=== PATIENT | male | born 1985 | race Two or more races ===

== ENCOUNTER 2018-02-11 03:41 | Emergency (ER) | payer SELFPAY ==
[~2018-02-11] VITALS: Ht 188 cm; Wt 60.4 kg
[2018-02-11 03:43] VITALS: BP 133/83
[2018-02-11] MEDS ORDERED: LIDOCAINE-MPF 2% ,5ML ONE (04:08)
[2018-02-11] MEDS ORDERED: LIDOCAINE-MPF 2% ,5ML SQ ONE (04:30)
== END 2018-02-11 04:44 | disposition home or self-care (01) ==
LOC: ED 04:25
DX: L03.012 Cellulitis of left finger (principal)
CPT/HCPCS: 26011; 99284

== ENCOUNTER 2018-11-22 20:32 | Inpatient (IN) | payer OTHER ==
[~2018-11-22] VITALS: Ht 188 cm; Wt 72.0 kg
--- NOTE | 2018-11-22 20:40 | NUR ---
PT DAJUAN FROM [facility], REPORT RECEIVED FROM EMS. PT ARRIVED WITH EMS AND [facility]URD X 1. PT C/O DIFFUSE ABD PAIN STARTING TWO WEEKS AGO, THEN WENT AWAY. PAIN CAME BACK 3 DAYS AGO ALONG WITH BILATERAL FLANK PAIN, N/V AND DYSURIA. EKG TAKEN ON ARRIVAL BY EDT, ALL MONITORS IN PLACE.
[2018-11-22] MEDS ORDERED: ONDANSETRON 2MG/ML, 2ML ONE (20:49)
[2018-11-22] MEDS ORDERED: ACETAMINOPHEN 500 MG TABLET ONE (20:50)
[2018-11-22 20:54] LABS: MEAN CORPUSCULAR HEMOGLOBIN 30.4 pg (27.5-34.5); MEAN CORPUSCULAR HGB CONC 33.9 g/dL (33.2-36.2); MEAN CORPUSCULAR VOLUME 89.7 fL (81-97); MEAN PLATELET VOLUME 8.3 fL (7.4-10.4); PLATELET COUNT 155 x10^3/uL (130-400); RED BLOOD COUNT 4.86 x10^6/uL (4.38-5.82); RED CELL DISTRIBUTION WIDTH 13.5 % (9.4-14.8)
[2018-11-22] MEDS ORDERED: SODIUM CHLORIDE 0.9% 1,000ML IVBOLUS ONE ×3 (21:00→23:30)
[2018-11-22] MEDS ORDERED: ACETAMINOPHEN 500 MG TABLET PO ONE (21:00)
[2018-11-22] MEDS ORDERED: SODIUM CHLORIDE FLUSH 10ML SYR IVF ONE ×2 (21:00→22:00)
[2018-11-22] MEDS ORDERED: ONDANSETRON 2MG/ML, 2ML IVPush ONE (21:00)
--- NOTE | 2018-11-22 21:00 | NUR ---
pt medicated per emar, tolerated well. JULIA Tse notified of initial vs. NS infusing rapidly. pt instructed to provide clean catch ua, urinal at bedside. jemima aware. pt states he has no urge to void at this time.
[2018-11-22 21:02] LABS: ALANINE AMINOTRANSFERASE 22 U/L (12-78); ALBUMIN 3.5 g/dL (3.4-5.0); ANION GAP 10 mmol/L (5-15); CALCIUM 7.8 mg/dL (8.5-10.1); CHLORIDE 104 mmol/L (98-107); CREATININE 1.57 mg/dL (0.7-1.3)
[2018-11-22 21:03] LABS: MD YES
[2018-11-22 21:05] LABS: ALKALINE PHOSPHATASE 119 U/L (45-117); BILIRUBIN,TOTAL 1.2 mg/dL (0.2-1.0); TOTAL PROTEIN 6.5 g/dL (6.4-8.2)
[2018-11-22 21:11] LABS: BAND#(MANUAL) 1.18 x10^3/uL; BANDS%(MANUAL) 21 % (0-7); LYMPH#(MANUAL) 0.62 x10^3/uL (1-3.4); LYMPHS% (MANUAL) 11 % (22-44); METAMYELOCYTES# (MANUAL) 0.62 x10^3/uL (0-0); METAMYELOCYTES% (MANUAL) 11 % (0-1); MONOS#(MANUAL) 0.06 x10^3/uL (0.3-2.7); MONOS% (MANUAL) 1 % (2-9); SEG#(MANUAL) 3.14 x10^3/uL (1.8-6.8); SEGS% (MANUAL) 56 % (42-75)
[2018-11-22 21:12] LABS: <RBC MORPHOLOGY> NORMAL; PMNS WITH VACUOLES 2+
[2018-11-22 21:13] LABS: <PLATELET ESTIMATE> ADEQUATE; <PLT MORPHOLOGY> NORMAL PLT MORPH
[2018-11-22] MEDS ORDERED: MORPHINE SULFATE 4 MG/ML, 1ML ONE (21:46)
[2018-11-22] MEDS: MORPHINE SULFATE 4 MG/ML, 1ML IVPush PRN (21:50)
--- NOTE | 2018-11-22 21:51 | NUR ---
REPEAT VS REVIEWED WITH MARITZA THOMAS MD OK'D RN TO ADMIN MORPHINE. PT MEDICATED PER EMAR, TOLERATED WELL. ALL MONITORS IN PLACE. PT A&O, RESPS EVEN AND UNLABORED. IVF INFUSING RAPIDLY. AWAITING CT AND UA RESULTS.
[2018-11-22] MEDS ORDERED: CEFOTETAN PMX 2GM/50ML 50 ML IVPB ONE (22:00)
[2018-11-22 22:09] LABS: MICROSCOPIC INDICATED
[2018-11-22 22:12] LABS: CULTURE INDICATED? NO
--- NOTE | 2018-11-22 22:15 | NUR ---
REPORT TO NORMA JIMENEZ AT BEDSIDE, CEFOTETAN GTT INITIATED S/P BLOOD CX DRAWN X 2. PT A&O, RESPS EVEN AND UNLABORED. REPORTS MINIMAL PAIN RELIEF S/P MORPHINE. PT A&O, RESPS EVEN AND UNLABORED, SINUS TACH RATE 100'S WITH NO ECTOPY ON CARIDAC MONITOR.
--- NOTE | 2018-11-22 23:50 | NUR ---
PT MOVED TO TRAUMA 3 FOR CENTRAL LINE INSERTION
[2018-11-22] MEDS ORDERED: NOREPINEPHRINE 4 MG in SODIUM CHLORIDE 0.9% 246 ML IV PRN (23:56)
--- NOTE | 2018-11-23 00:01 | NUR ---
ASSUMED CARE OF PT FOR CENTRAL LINE INSERTION. SEE VS.
--- NOTE | 2018-11-23 00:10 | NUR ---
CENTRAL LINE FINISHED. PT TOLERATED WELL.
[2018-11-23] MEDS: MORPHINE SULFATE 4 MG/ML, 1ML IVPush PRN (00:11)
--- NOTE | 2018-11-23 00:16 | NUR ---
PRIMARY RN TOM TO BS, MED TO BE STARTED AFTER CXR READ BY MD. CXR DONE NOW.
--- NOTE | 2018-11-23 00:20 | NUR ---
Dr. Goodman at bedside to evaluate pt.
[2018-11-23] MEDS ORDERED: MORPHINE SULFATE 4 MG/ML, 1ML ONE (00:22)
[2018-11-23] MEDS ORDERED: SODIUM CHLORIDE 0.9% 1,000 ML IV SCH (00:27)
[2018-11-23] MEDS ORDERED: PIPERACILLIN/TAZO/PMX 3.375GM 50 ML IV ONE (00:30)
[2018-11-23] MEDS ORDERED: PIPERACILLIN/TAZO/PMX 3.375GM 50 ML IV SCH (00:30)
[2018-11-23] MEDS ORDERED: ACETAMINOPHEN 325 MG TABLET PO PRN ×2 (00:30→02:30)
[2018-11-23] MEDS ORDERED: ONDANSETRON 2MG/ML, 2ML IVPush PRN (00:30)
[2018-11-23] MEDS ORDERED: morphine SULFATE 10 MG/ML, 1ML IVPush PRN (00:30)
[2018-11-23] MEDS ORDERED: BUSP5TAB2 PO (00:31)
[2018-11-23] MEDS ORDERED: antidepressant PO (00:31)
[2018-11-23] MEDS ORDERED: OMNIPAQUE 350 MG/ML, 100ML BOTTLE ONE (00:35)
--- NOTE | 2018-11-23 00:36 | NUR ---
Per ERP, Ember, after viewing CXR, ok to use central line for levophed.
--- NOTE | 2018-11-23 00:49 | NUR ---
Labs drawn, IV ABX infusing.
[2018-11-23 01:07] LABS: ANION GAP 7 mmol/L (5-15); CALCIUM 7.2 mg/dL (8.5-10.1); CHLORIDE 108 mmol/L (98-107); CREATININE 1.82 mg/dL (0.7-1.3)
[2018-11-23 01:10] LABS: MEAN CORPUSCULAR HEMOGLOBIN 30.6 pg (27.5-34.5); MEAN CORPUSCULAR HGB CONC 34.4 g/dL (33.2-36.2); MEAN CORPUSCULAR VOLUME 88.9 fL (81-97); MEAN PLATELET VOLUME 8.7 fL (7.4-10.4); PLATELET COUNT 123 x10^3/uL (130-400); RED BLOOD COUNT 4.54 x10^6/uL (4.38-5.82); RED CELL DISTRIBUTION WIDTH 13.8 % (9.4-14.8)
[2018-11-23 01:29] LABS: MD YES
[2018-11-23 01:36] LABS: BAND#(MANUAL) 2.09 x10^3/uL; BANDS%(MANUAL) 17 % (0-7); LYMPH#(MANUAL) 0.12 x10^3/uL (1-3.4); LYMPHS% (MANUAL) 1 % (22-44); METAMYELOCYTES# (MANUAL) 0.25 x10^3/uL (0-0); METAMYELOCYTES% (MANUAL) 2 % (0-1); MONOS#(MANUAL) 0.25 x10^3/uL (0.3-2.7); MONOS% (MANUAL) 2 % (2-9); SEG#(MANUAL) 9.59 x10^3/uL (1.8-6.8); SEGS% (MANUAL) 78 % (42-75)
[2018-11-23 01:37] LABS: <PLATELET ESTIMATE> DECREASED; <PLT MORPHOLOGY> NORMAL PLT MORPH; <RBC MORPHOLOGY> NORMAL
--- NOTE | 2018-11-23 01:48 | NUR ---
Telephone SBAR report given to RN, Shruthi, from OR.
[2018-11-23] MEDS ORDERED: MIDAZOLAM 1 MG/ML, 2ML ONE (02:06)
[2018-11-23] MEDS ORDERED: BUPIVACAINE/EPI 0.5% 1:200K ONE (02:11)
[2018-11-23] MEDS ORDERED: FENTANYL PF 250 MCG/5ML ONE (02:20)
[2018-11-23] MEDS ORDERED: NEOSTIGMINE 1 MG/ML, 10ML ONE (02:25)
[2018-11-23] MEDS ORDERED: ONDANSETRON 2MG/ML, 2ML IV PRN (02:30)
[2018-11-23] MEDS ORDERED: PROMETHAZINE 12.5 MG SUPP PR PRN (02:30)
[2018-11-23] MEDS ORDERED: DIAZEPAM 5 MG/ML, 2ML IVPush PRN (02:30)
[2018-11-23] MEDS ORDERED: LABETALOL 5MG/ML, 20ML IV PRN (02:30)
[2018-11-23] MEDS ORDERED: PROMETHAZINE 25 MG/ML, 1ML IV PRN (02:30)
[2018-11-23] MEDS ORDERED: EPHEDRINE 50 MG/ML, 1ML IVPush PRN (02:30)
[2018-11-23] MEDS ORDERED: OXYcodone 5 MG/5 ML ORAL.SOL UDC PO PRN (02:30)
[2018-11-23] MEDS ORDERED: hydrALAzine 20 MG/ML, 1ML IV PRN (02:30)
[2018-11-23] MEDS ORDERED: ONDANSETRON ODT 8 MG PO PRN (02:30)
[2018-11-23] MEDS ORDERED: MORPHINE SULFATE 4 MG/ML, 1ML IVPush PRN (02:30)
[2018-11-23] MEDS ORDERED: HYDROmorphone 2 MG/ML, 1ML IVPush PRN (02:30)
[2018-11-23] MEDS ORDERED: HALOPERIDOL 5 MG/ML IV PRN (02:30)
[2018-11-23] MEDS ORDERED: ALBUTEROL SULFATE 2.5 MG/3 ML NPPB PRN (02:30)
[2018-11-23] MEDS ORDERED: FENTANYL PF 100 MCG/2ML IV PRN (02:30)
[2018-11-23] MEDS ORDERED: MEPERIDINE/PF 25MG/0.5ML IVPush PRN (02:30)
[2018-11-23] MEDS ORDERED: MIDAZOLAM 1 MG/ML, 2ML IV PRN (02:30)
[2018-11-23] MEDS ORDERED: NS + 40MEQ KCL 1,000 ML IV SCH (03:00)
[2018-11-23] MEDS ORDERED: DEXAMETHASONE 4 MG/ML, 1ML ONE (03:09)
[2018-11-23] MEDS ORDERED: SUCCINYLCHOLINE 20 MG/ML, 10ML ONE (03:09)
[2018-11-23] MEDS ORDERED: PROPOFOL 10 MG/ML, 20ML ONE (03:09)
[2018-11-23] MEDS ORDERED: ONDANSETRON 2MG/ML, 2ML ONE (03:09)
[2018-11-23] MEDS ORDERED: VASOPRESSIN 20 UNIT/ML, 1ML ONE (03:09)
[2018-11-23] MEDS ORDERED: ROCURONIUM 10MG/ML,5ML ONE (03:09)
[2018-11-23] MEDS ORDERED: BUPIVACAINE/EPI 0.5% 1:200K INFIL ONE (03:23)
[2018-11-23 04:33] VITALS: BP 96/69
[2018-11-23] MEDS ORDERED: LORazepam 1MG TABLET PO PRN (05:30)
[2018-11-23] MEDS ORDERED: ACETAMINOPHEN 650 MG SUPP PR PRN (05:30)
[2018-11-23] MEDS ORDERED: POTASSIUM CHLORIDE 20 MEQ in D5%-0.45% NACL 1,000 ML IV SCH (05:30)
[2018-11-23] MEDS ORDERED: METRONIDAZOLE PMX 500MG/100ML 100 ML IVPB SCH (05:30)
[2018-11-23] MEDS: ENOXAPARIN 40 MG/0.4 ML SQ SCH ×2 (05:30→06:04)
[2018-11-23] MEDS ORDERED: LORazepam 2 MG/ML, 1ML IV PRN (05:30)
[2018-11-23] MEDS ORDERED: NOREPINEPHRINE 4 MG in SODIUM CHLORIDE 0.9% 246 ML IV PRN (06:30)
[2018-11-23] MEDS: morphine SULFATE 10 MG/ML, 1ML IV PRN ×4 (07:29→21:16)
[2018-11-23] MEDS: SODIUM CHLORIDE 0.45% 1,000 ML IV SCH ×2 (07:32→17:42)
[2018-11-23] MEDS: PIPERACILLIN/TAZO/PMX 3.375GM 50 ML IV SCH ×3 (07:34→17:41)
[2018-11-23] MEDS ORDERED: FAMOTIDINE 20 MG/2 ML IVPush SCH (09:00)
[2018-11-23] MEDS ORDERED: CEFOTETAN PMX 1GM/50ML 50 ML IVPB SCH (10:00)
[2018-11-23] MEDS: ACETAMINOPHEN 325 MG TABLET PO PRN (16:55)
[2018-11-23 18:45] VITALS: BP 98/60
[2018-11-24] MEDS: PIPERACILLIN/TAZO/PMX 3.375GM 50 ML IV SCH ×3 (00:34→12:41)
[2018-11-24] MEDS: morphine SULFATE 10 MG/ML, 1ML IV PRN ×7 (00:56→19:53)
[2018-11-24] MEDS: SODIUM CHLORIDE 0.45% 1,000 ML IV SCH ×2 (03:17→20:30)
[2018-11-24 03:55] VITALS: BP 95/65
[2018-11-24 05:31] LABS: MEAN CORPUSCULAR HEMOGLOBIN 30.7 pg (27.5-34.5); MEAN CORPUSCULAR HGB CONC 34.1 g/dL (33.2-36.2); MEAN CORPUSCULAR VOLUME 90.2 fL (81-97); MEAN PLATELET VOLUME 9.6 fL (7.4-10.4); PLATELET COUNT 103 x10^3/uL (130-400); RED BLOOD COUNT 4.38 x10^6/uL (4.38-5.82)
[2018-11-24 05:44] LABS: CHLORIDE 107 mmol/L (98-107)
[2018-11-24 05:56] LABS: ALANINE AMINOTRANSFERASE 23 U/L (12-78); ALBUMIN 2.8 g/dL (3.4-5.0); ALKALINE PHOSPHATASE 70 U/L (45-117); ANION GAP 5 mmol/L (5-15); BILIRUBIN,TOTAL 0.8 mg/dL (0.2-1.0); CALCIUM 7.7 mg/dL (8.5-10.1); CREATININE 0.96 mg/dL (0.7-1.3); TOTAL PROTEIN 5.8 g/dL (6.4-8.2)
[2018-11-24 06:14] LABS: MD YES
[2018-11-24 06:15] LABS: BAND#(MANUAL) 2.46 x10^3/uL; BANDS%(MANUAL) 23 % (0-7); LYMPH#(MANUAL) 0.64 x10^3/uL (1-3.4); LYMPHS% (MANUAL) 6 % (22-44); MONOS#(MANUAL) 0.75 x10^3/uL (0.3-2.7); MONOS% (MANUAL) 7 % (2-9); SEG#(MANUAL) 6.85 x10^3/uL (1.8-6.8); SEGS% (MANUAL) 64 % (42-75)
[2018-11-24 06:16] LABS: <PLATELET ESTIMATE> DECREASED; <PLT MORPHOLOGY> NORMAL PLT MORPH; <RBC MORPHOLOGY> NORMAL
[2018-11-24] MEDS: ENOXAPARIN 40 MG/0.4 ML SQ SCH (06:34)
[2018-11-24 06:55] VITALS: BP 98/61
[2018-11-24] MEDS ORDERED: POTASSIUM CHLORIDE 40 MEQ in SODIUM CHLORIDE 0.9% 500 ML IV ONE (09:00)
[2018-11-24] MEDS: ONDANSETRON 2MG/ML, 2ML IV PRN (12:41)
[2018-11-24] MEDS ORDERED: METOCLOPRAMIDE 5 MG/ML, 2ML ONE (14:14)
[2018-11-24] MEDS ORDERED: METOCLOPRAMIDE 5 MG/ML, 2ML IVPush ONE (14:30)
[2018-11-24 14:35] VITALS: BP 100/72
[2018-11-24] MEDS: PIPERACILLIN/TAZO/PMX 4.5GM 100 ML IV SCH (17:36)
[2018-11-24 19:05] VITALS: BP 100/67
[2018-11-25 00:10] VITALS: BP 120/76
[2018-11-25] MEDS: morphine SULFATE 10 MG/ML, 1ML IV PRN ×2 (00:10→05:49)
[2018-11-25] MEDS: ONDANSETRON 2MG/ML, 2ML IV PRN ×2 (00:16→21:20)
[2018-11-25] MEDS: PIPERACILLIN/TAZO/PMX 4.5GM 100 ML IV SCH ×5 (05:39→23:45)
[2018-11-25] MEDS: ENOXAPARIN 40 MG/0.4 ML SQ SCH (05:39)
[2018-11-25 05:47] LABS: ANION GAP 5 mmol/L (5-15); CALCIUM 7.7 mg/dL (8.5-10.1); CHLORIDE 103 mmol/L (98-107)
[2018-11-25 05:54] LABS: MEAN CORPUSCULAR HEMOGLOBIN 30.7 pg (27.5-34.5); MEAN CORPUSCULAR HGB CONC 34.3 g/dL (33.2-36.2); MEAN CORPUSCULAR VOLUME 89.5 fL (81-97); MEAN PLATELET VOLUME 9.9 fL (7.4-10.4); PLATELET COUNT 117 x10^3/uL (130-400); RED BLOOD COUNT 4.68 x10^6/uL (4.38-5.82); RED CELL DISTRIBUTION WIDTH 13.9 % (9.4-14.8)
[2018-11-25 06:16] LABS: MD YES
[2018-11-25 06:20] LABS: BAND#(MANUAL) 1.58 x10^3/uL; BANDS%(MANUAL) 12 % (0-7); LYMPHS% (MANUAL) 3 % (22-44); MONOS% (MANUAL) 3 % (2-9); SEG#(MANUAL) 10.82 x10^3/uL (1.8-6.8); SEGS% (MANUAL) 82 % (42-75)
[2018-11-25 06:21] LABS: <PLATELET ESTIMATE> DECREASED; <PLT MORPHOLOGY> NORMAL PLT MORPH; <RBC MORPHOLOGY> NORMAL
[2018-11-25 07:38] VITALS: BP 113/73
[2018-11-25] MEDS ORDERED: POTASSIUM CHLORIDE 40 MEQ in SODIUM CHLORIDE 0.9% 500 ML IV ONE (08:00)
[2018-11-25] MEDS: SODIUM CHLORIDE 0.45% 1,000 ML IV SCH ×2 (08:24→20:00)
[2018-11-25] MEDS ORDERED: chlorPROMAZINE 25 MG/ML, 2ML IM ONE (08:30)
[2018-11-25] MEDS ORDERED: OMNIPAQUE 350 MG/ML, 100ML BOTTLE ONE (12:59)
[2018-11-25 14:48] VITALS: BP 109/71
[2018-11-25 19:11] VITALS: BP 105/65
[2018-11-25] MEDS: HYDROmorphone 2 MG/ML, 1ML IV PRN (21:20)
[2018-11-26] MEDS: HYDROmorphone 2 MG/ML, 1ML IV PRN ×2 (00:19→04:52)
[2018-11-26 01:11] VITALS: BP 106/62
[2018-11-26] MEDS: ENOXAPARIN 40 MG/0.4 ML SQ SCH (05:35)
[2018-11-26] MEDS: PIPERACILLIN/TAZO/PMX 4.5GM 100 ML IV SCH ×3 (05:35→21:08)
[2018-11-26] MEDS: SODIUM CHLORIDE 0.45% 1,000 ML IV SCH (05:35)
[2018-11-26 05:38] LABS: MEAN CORPUSCULAR HGB CONC 33.5 g/dL (33.2-36.2); MEAN CORPUSCULAR VOLUME 89.5 fL (81-97); MEAN PLATELET VOLUME 9.4 fL (7.4-10.4); PLATELET COUNT 129 x10^3/uL (130-400); RED BLOOD COUNT 4.35 x10^6/uL (4.38-5.82); RED CELL DISTRIBUTION WIDTH 13.6 % (9.4-14.8)
[2018-11-26 05:48] LABS: CHLORIDE 106 mmol/L (98-107)
[2018-11-26 05:59] LABS: ALANINE AMINOTRANSFERASE 22 U/L (12-78); ALBUMIN 2.5 g/dL (3.4-5.0); ALKALINE PHOSPHATASE 49 U/L (45-117); ANION GAP 5 mmol/L (5-15); BILIRUBIN,TOTAL 0.7 mg/dL (0.2-1.0); CALCIUM 7.4 mg/dL (8.5-10.1); CREATININE 0.87 mg/dL (0.7-1.3); TOTAL PROTEIN 5.6 g/dL (6.4-8.2)
[2018-11-26 07:24] LABS: BASOPHILS % (AUTO) 0 % (0-1); EOSINOPHILS # (AUTO) 0.03 x10^3/uL (0-0.4); EOSINOPHILS % (AUTO) 0 % (1-7); LYMPHOCYTES # (AUTO) 0.64 x10^3/uL (1-3.4); LYMPHOCYTES % (AUTO) 6 % (22-44); MD SCAN; MONOCYTES # (AUTO) 0.95 x10^3/uL (0.2-0.8); MONOCYTES % (AUTO) 8 % (2-9); NEUTROPHILS # (AUTO) 9.69 x10^3/uL (1.8-6.8); NEUTROPHILS % (AUTO) 86 % (42-75)
[2018-11-26 07:30] VITALS: BP 117/77
[2018-11-26] MEDS ORDERED: POTASSIUM PHOSPHATE 44 MEQ in SODIUM CHLORIDE 0.9% 500 ML IV ONE (09:30)
[2018-11-26] MEDS: OXYcodone IR 5MG TABLET PO PRN ×3 (10:17→21:08)
[2018-11-26 13:30] VITALS: BP 112/72
[2018-11-26] MEDS: ACETAMINOPHEN 325 MG TABLET PO PRN (15:13)
[2018-11-26 19:26] VITALS: BP 114/75
[2018-11-27 01:22] VITALS: BP 120/76
[2018-11-27] MEDS: PIPERACILLIN/TAZO/PMX 4.5GM 100 ML IV SCH ×4 (01:33→20:31)
[2018-11-27] MEDS: OXYcodone IR 5MG TABLET PO PRN ×5 (01:34→23:04)
[2018-11-27] MEDS: ENOXAPARIN 40 MG/0.4 ML SQ SCH (06:10)
[2018-11-27 06:20] LABS: CHLORIDE 106 mmol/L (98-107)
[2018-11-27 06:48] LABS: ANION GAP 7 mmol/L (5-15); CALCIUM 7.7 mg/dL (8.5-10.1); CREATININE 0.78 mg/dL (0.7-1.3)
[2018-11-27] MEDS: NEUTRA PHOS K 250 MG TABLET PO SCH ×3 (08:45→20:30)
[2018-11-27] MEDS: POTASSIUM CHLORIDE 20 MEQ TAB.ER.PRT PO SCH ×2 (08:45→13:22)
[2018-11-27 09:03] VITALS: BP 110/68
[2018-11-27 13:38] VITALS: BP 113/73
[2018-11-27 19:09] VITALS: BP 126/91
[2018-11-27 19:18] VITALS: BP 110/74
[2018-11-28] MEDS: PIPERACILLIN/TAZO/PMX 4.5GM 100 ML IV SCH ×3 (02:04→14:00)
[2018-11-28 02:50] VITALS: BP 112/70
[2018-11-28] MEDS: OXYcodone IR 5MG TABLET PO PRN ×3 (03:46→11:55)
[2018-11-28 05:29] LABS: CHLORIDE 106 mmol/L (98-107)
[2018-11-28] MEDS: ENOXAPARIN 40 MG/0.4 ML SQ SCH (05:36)
[2018-11-28 05:50] LABS: ANION GAP 8 mmol/L (5-15); CALCIUM 7.8 mg/dL (8.5-10.1); CREATININE 0.74 mg/dL (0.7-1.3)
[2018-11-28] MEDS: NEUTRA PHOS K 250 MG TABLET PO SCH (08:04)
[2018-11-28] MEDS ORDERED: POTASSIUM CHLORIDE 20 MEQ TAB.ER.PRT PO ONE (09:00)
[2018-11-28 09:26] VITALS: BP 111/70
[2018-11-28] MEDS ORDERED: SCOPOLAMINE PATCH, 1.5MG PATCH.TD72 TD ONE (09:30)
[2018-11-28] MEDS ORDERED: POTA20TA89 PO (11:44)
[2018-11-28] MEDS ORDERED: PHOS250T3 PO (11:44)
[2018-11-28] MEDS ORDERED: AMOX1TAB64 PO (12:58)
[2018-11-28 13:00] VITALS: BP 114/65
== END 2018-11-28 14:45 | disposition home or self-care (01) | DRG 853 ==
LOC: ED 20:58 → EDIP 23:56 → CCU 11-23 04:25 → 4NOR 11-23 18:42
PROVIDERS: ADMIT Family Medicine; ATTEND Family Medicine
PROC: 02HV33Z Insertion of Infusion Device into Superior Vena Cava, Percutaneous Approach (ICD-10-PCS; 2018-11-23)
PROC: B548ZZA Ultrasonography of Superior Vena Cava, Guidance (ICD-10-PCS; 2018-11-23)
PROC: 0DTJ4ZZ Resection of Appendix, Percutaneous Endoscopic Approach (ICD-10-PCS; principal; 2018-11-23 06:00)
DX: A41.51 Sepsis due to Escherichia coli [E. coli] (principal); R65.21 Severe sepsis with septic shock; N17.0 Acute kidney failure with tubular necrosis; K35.20 Acute appendicitis with generalized peritonitis, without abscess; I96 Gangrene, not elsewhere classified; K56.7 Ileus, unspecified; E86.0 Dehydration; J44.9 Chronic obstructive pulmonary disease, unspecified; F32.9 Major depressive disorder, single episode, unspecified; E87.6 Hypokalemia; E83.39 Other disorders of phosphorus metabolism; N20.0 Calculus of kidney; N28.1 Cyst of kidney, acquired; E86.1 Hypovolemia; Z87.891 Personal history of nicotine dependence; Z79.899 Other long term (current) drug therapy
CPT/HCPCS: 36415; 96361; 99291; 99292; J3490; 71045; 74177; 80048; 80053; 81001; 83605; 83690; 83735; 84100; 85025; 87040; 87077; 87081; 87186; 88304; 93005; 96365; 96366; 96372; G0378; J1100; J1170; J1650; J2250; J2405; J2543; J2704; J2710; J3010; J3480; Q9967; J0330; J2270; J2765; J3230; J7030; J7040; J7050

== ENCOUNTER 2018-11-28 21:48 | Inpatient (IN) | payer OTHER ==
[~2018-11-28] VITALS: Ht 177.8 cm; Wt 64.0 kg
[~2018-11-28 21:48] MED LIST: AMOX1TAB64 PO; BUSP5TAB2 PO; PHOS250T3 PO; POTA20TA89 PO; antidepressant PO
--- NOTE | 2018-11-28 21:59 | NUR ---
pt bib remsa tonight for fever and warm, tight abdomen 4 days post appy. Pt arrives to [facility] and vss. pt attached to vs machines. pt temperature rechecked, and improved from initial temperature at detention. T- 99.0 at [facility] ED. FSBS for EMS 96. Pt received 200 fentanyl and 600 ml bolus of NS en route. Dr. Hope at bs for pt history and assessment. Officer at bs with pt. pt educated on er process and poc and verbalizes understanding. Call light is within reach.
[2018-11-28] MEDS ORDERED: SODIUM CHLORIDE FLUSH 10ML SYR IVF ONE (22:00)
[2018-11-28] MEDS ORDERED: ONDANSETRON 2MG/ML, 2ML IVPush ONE (22:00)
[2018-11-28] MEDS ORDERED: MORPHINE SULFATE 4 MG/ML, 1ML ONE ×2 (22:05→22:56)
[2018-11-28] MEDS ORDERED: ONDANSETRON 2MG/ML, 2ML ONE (22:05)
[2018-11-28] MEDS: MORPHINE SULFATE 4 MG/ML, 1ML IVPush PRN ×2 (22:14→23:03)
--- NOTE | 2018-11-28 22:14 | NUR ---
pt medicated per mar for pain and nausea.
[2018-11-28 22:24] LABS: BASOPHILS # (AUTO) 0.04 x10^3/uL (0-0.1); BASOPHILS % (AUTO) 0 % (0-1); EOSINOPHILS # (AUTO) 0.03 x10^3/uL (0-0.4); EOSINOPHILS % (AUTO) 0 % (1-7); LYMPHOCYTES # (AUTO) 1.04 x10^3/uL (1-3.4); LYMPHOCYTES % (AUTO) 9 % (22-44); MD NO; MEAN CORPUSCULAR HEMOGLOBIN 29.6 pg (27.5-34.5); MEAN CORPUSCULAR HGB CONC 33.7 g/dL (33.2-36.2); MEAN CORPUSCULAR VOLUME 87.6 fL (81-97); MEAN PLATELET VOLUME 8.2 fL (7.4-10.4); MONOCYTES # (AUTO) 1.42 x10^3/uL (0.2-0.8); MONOCYTES % (AUTO) 12 % (2-9); NEUTROPHILS # (AUTO) 9.56 x10^3/uL (1.8-6.8); NEUTROPHILS % (AUTO) 79 % (42-75); PLATELET COUNT 271 x10^3/uL (130-400); RED BLOOD COUNT 4.55 x10^6/uL (4.38-5.82); RED CELL DISTRIBUTION WIDTH 13.7 % (9.4-14.8)
[2018-11-28] MEDS ORDERED: SODIUM CHLORIDE 0.9% 1,000ML IVBOLUS ONE (22:30)
[2018-11-28 22:32] LABS: ALANINE AMINOTRANSFERASE 31 U/L (12-78); ALBUMIN 2.4 g/dL (3.4-5.0); ANION GAP 10 mmol/L (5-15); CALCIUM 7.3 mg/dL (8.5-10.1); CHLORIDE 106 mmol/L (98-107); CREATININE 0.75 mg/dL (0.7-1.3)
[2018-11-28 22:35] LABS: ALKALINE PHOSPHATASE 45 U/L (45-117); BILIRUBIN,TOTAL 0.7 mg/dL (0.2-1.0); TOTAL PROTEIN 5.8 g/dL (6.4-8.2)
[2018-11-28 23:11] LABS: MICROSCOPIC NOT IND
[2018-11-28 23:13] LABS: CULTURE INDICATED? NO
[2018-11-28] MEDS ORDERED: PIPERACILLIN/TAZO/PMX 3.375GM 50 ML IV ONE (23:30)
--- NOTE | 2018-11-28 23:34 | NUR ---
pt resting comfortably in this gurney at this time. guard at bs. pt educated on admit plan and verbalizes understanding.
--- NOTE | 2018-11-29 00:07 | NUR ---
PT TRANSFERRED TO FLOOR WITH TRANSPORT STAFF. REPORT OF PT TO NORMA CATHERINE. ALL QUESTIONS ANSWERED.
[2018-11-29 00:13] VITALS: BP 118/70
[2018-11-29] MEDS ORDERED: LABETALOL 5 MG/ML SYRINGE IVPush PRN (00:30)
[2018-11-29] MEDS ORDERED: KETOROLAC 30 MG/1 ML IV PRN (00:30)
[2018-11-29] MEDS ORDERED: ACETAMINOPHEN 325 MG TABLET PO PRN (00:30)
[2018-11-29] MEDS ORDERED: ONDANSETRON 2MG/ML, 2ML IVPush PRN (00:30)
[2018-11-29] MEDS ORDERED: ZOSYN PER PHARMACY MC PRN (00:30)
[2018-11-29] MEDS: ENOXAPARIN 40 MG/0.4 ML SQ SCH (01:02)
[2018-11-29] MEDS: morphine SULFATE 10 MG/ML, 1ML IVPush PRN ×4 (01:02→20:10)
[2018-11-29] MEDS ORDERED: OMNIPAQUE 350 MG/ML, 100ML BOTTLE ONE (01:20)
[2018-11-29] MEDS: D5%-0.45NACL+KCL 20MEQ 1,000 ML IV SCH ×2 (01:24→10:24)
[2018-11-29] MEDS: PIPERACILLIN/TAZO/PMX 3.375GM 50 ML IV SCH ×4 (06:13→23:21)
[2018-11-29 08:10] VITALS: BP 111/65
[2018-11-29] MEDS ORDERED: SODIUM CHLORIDE 0.9%, 500ML IV ONE (09:30)
[2018-11-29] MEDS: METOCLOPRAMIDE 5 MG/ML, 2ML IV SCH ×3 (10:25→21:54)
[2018-11-29 12:45] VITALS: BP 102/68
[2018-11-29] MEDS ORDERED: POTASSIUM PHOSPHATE 44 MEQ in SODIUM CHLORIDE 0.9% 500 ML IV ONE (15:00)
[2018-11-29 20:12] VITALS: BP 107/67
[2018-11-30] MEDS: ENOXAPARIN 40 MG/0.4 ML SQ SCH ×2 (00:30→09:48)
[2018-11-30 00:45] VITALS: BP 99/57
[2018-11-30] MEDS: morphine SULFATE 10 MG/ML, 1ML IVPush PRN ×5 (00:53→20:52)
[2018-11-30] MEDS: METOCLOPRAMIDE 5 MG/ML, 2ML IV SCH ×4 (03:47→21:27)
[2018-11-30 05:10] LABS: BASOPHILS # (AUTO) 0.01 x10^3/uL (0-0.1); BASOPHILS % (AUTO) 0 % (0-1); EOSINOPHILS # (AUTO) 0.06 x10^3/uL (0-0.4); EOSINOPHILS % (AUTO) 1 % (1-7); LYMPHOCYTES # (AUTO) 1.07 x10^3/uL (1-3.4); LYMPHOCYTES % (AUTO) 11 % (22-44); MD NO; MEAN CORPUSCULAR HEMOGLOBIN 29.5 pg (27.5-34.5); MEAN CORPUSCULAR HGB CONC 33.1 g/dL (33.2-36.2); MEAN CORPUSCULAR VOLUME 89.2 fL (81-97); MONOCYTES # (AUTO) 1.07 x10^3/uL (0.2-0.8); MONOCYTES % (AUTO) 11 % (2-9); NEUTROPHILS # (AUTO) 7.22 x10^3/uL (1.8-6.8); NEUTROPHILS % (AUTO) 77 % (42-75); PLATELET COUNT 360 x10^3/uL (130-400); RED BLOOD COUNT 4.32 x10^6/uL (4.38-5.82); RED CELL DISTRIBUTION WIDTH 14.1 % (9.4-14.8)
[2018-11-30 05:24] LABS: CHLORIDE 109 mmol/L (98-107)
[2018-11-30] MEDS: D5%-0.45NACL+KCL 20MEQ 1,000 ML IV SCH ×2 (05:25→18:31)
[2018-11-30] MEDS: PIPERACILLIN/TAZO/PMX 3.375GM 50 ML IV SCH ×3 (05:25→18:31)
[2018-11-30 05:40] LABS: ALANINE AMINOTRANSFERASE 29 U/L (12-78); ALBUMIN 2.3 g/dL (3.4-5.0); ALKALINE PHOSPHATASE 46 U/L (45-117); ANION GAP 6 mmol/L (5-15); BILIRUBIN,TOTAL 0.6 mg/dL (0.2-1.0); CALCIUM 7.5 mg/dL (8.5-10.1); CREATININE 0.72 mg/dL (0.7-1.3); TOTAL PROTEIN 5.9 g/dL (6.4-8.2)
[2018-11-30 08:15] VITALS: BP 101/59
[2018-11-30 13:05] VITALS: BP 98/63
[2018-11-30] MEDS: KETOROLAC 30 MG/1 ML IV PRN (14:29)
[2018-11-30 19:32] VITALS: BP 107/72
[2018-12-01] MEDS: PIPERACILLIN/TAZO/PMX 3.375GM 50 ML IV SCH ×5 (00:06→23:43)
[2018-12-01] MEDS: morphine SULFATE 10 MG/ML, 1ML IVPush PRN ×7 (01:06→22:47)
[2018-12-01 01:09] VITALS: BP 106/61
[2018-12-01] MEDS: D5%-0.45NACL+KCL 20MEQ 1,000 ML IV SCH ×3 (02:23→21:24)
[2018-12-01] MEDS: METOCLOPRAMIDE 5 MG/ML, 2ML IV SCH (04:15)
[2018-12-01] MEDS: KETOROLAC 30 MG/1 ML IV PRN ×2 (04:20→23:43)
[2018-12-01 05:47] LABS: BASOPHILS # (AUTO) 0.02 x10^3/uL (0-0.1); BASOPHILS % (AUTO) 0 % (0-1); EOSINOPHILS # (AUTO) 0.07 x10^3/uL (0-0.4); EOSINOPHILS % (AUTO) 1 % (1-7); LYMPHOCYTES % (AUTO) 13 % (22-44); MD NO; MEAN CORPUSCULAR HEMOGLOBIN 29.3 pg (27.5-34.5); MEAN CORPUSCULAR HGB CONC 32.9 g/dL (33.2-36.2); MEAN PLATELET VOLUME 7.7 fL (7.4-10.4); MONOCYTES # (AUTO) 0.98 x10^3/uL (0.2-0.8); MONOCYTES % (AUTO) 12 % (2-9); NEUTROPHILS # (AUTO) 6.32 x10^3/uL (1.8-6.8); NEUTROPHILS % (AUTO) 74 % (42-75); PLATELET COUNT 414 x10^3/uL (130-400); RED BLOOD COUNT 4.26 x10^6/uL (4.38-5.82); RED CELL DISTRIBUTION WIDTH 14.2 % (9.4-14.8)
[2018-12-01 05:57] LABS: ANION GAP 4 mmol/L (5-15); CALCIUM 7.7 mg/dL (8.5-10.1); CHLORIDE 110 mmol/L (98-107); CREATININE 0.78 mg/dL (0.7-1.3)
[2018-12-01] MEDS: ENOXAPARIN 40 MG/0.4 ML SQ SCH (09:54)
[2018-12-01 11:20] VITALS: BP 105/68
[2018-12-01 14:33] VITALS: BP 114/77
[2018-12-01 18:49] VITALS: BP 107/66
[2018-12-02 00:43] VITALS: BP 101/60
[2018-12-02] MEDS: morphine SULFATE 10 MG/ML, 1ML IVPush PRN ×7 (01:56→23:34)
[2018-12-02 04:15] LABS: BASOPHILS # (AUTO) 0.02 x10^3/uL (0-0.1); BASOPHILS % (AUTO) 0 % (0-1); EOSINOPHILS # (AUTO) 0.12 x10^3/uL (0-0.4); EOSINOPHILS % (AUTO) 2 % (1-7); LYMPHOCYTES # (AUTO) 1.49 x10^3/uL (1-3.4); LYMPHOCYTES % (AUTO) 20 % (22-44); MD NO; MEAN CORPUSCULAR HEMOGLOBIN 29.9 pg (27.5-34.5); MEAN CORPUSCULAR HGB CONC 33.9 g/dL (33.2-36.2); MEAN CORPUSCULAR VOLUME 88.2 fL (81-97); MEAN PLATELET VOLUME 7.6 fL (7.4-10.4); MONOCYTES # (AUTO) 1.03 x10^3/uL (0.2-0.8); MONOCYTES % (AUTO) 14 % (2-9); NEUTROPHILS # (AUTO) 4.77 x10^3/uL (1.8-6.8); NEUTROPHILS % (AUTO) 64 % (42-75); PLATELET COUNT 476 x10^3/uL (130-400); RED BLOOD COUNT 4.14 x10^6/uL (4.38-5.82); RED CELL DISTRIBUTION WIDTH 14.2 % (9.4-14.8)
[2018-12-02 04:23] LABS: CHLORIDE 103 mmol/L (98-107)
[2018-12-02 04:30] LABS: ALANINE AMINOTRANSFERASE 35 U/L (12-78); ALBUMIN 2.4 g/dL (3.4-5.0); ALKALINE PHOSPHATASE 42 U/L (45-117); ANION GAP 4 mmol/L (5-15); BILIRUBIN,TOTAL 0.9 mg/dL (0.2-1.0); CALCIUM 7.8 mg/dL (8.5-10.1); CREATININE 0.68 mg/dL (0.7-1.3); TOTAL PROTEIN 6.1 g/dL (6.4-8.2)
[2018-12-02] MEDS: D5%-0.45NACL+KCL 20MEQ 1,000 ML IV SCH ×2 (05:15→14:53)
[2018-12-02] MEDS: PIPERACILLIN/TAZO/PMX 3.375GM 50 ML IV SCH ×2 (05:15→11:54)
[2018-12-02 08:08] VITALS: BP 108/66
[2018-12-02] MEDS: KETOROLAC 30 MG/1 ML IV PRN ×2 (08:28→14:53)
[2018-12-02] MEDS: ENOXAPARIN 40 MG/0.4 ML SQ SCH ×2 (08:30→08:31)
[2018-12-02 12:22] VITALS: BP 106/61
[2018-12-02] MEDS: CEFTRIAXONE PMX 2GM/50ML 50 ML IV SCH (16:42)
[2018-12-02] MEDS: METRONIDAZOLE PMX 500MG/100ML 100 ML IV SCH (17:13)
[2018-12-02 19:17] VITALS: BP 113/75
[2018-12-03 00:22] VITALS: BP 110/67
[2018-12-03] MEDS: D5%-0.45NACL+KCL 20MEQ 1,000 ML IV SCH ×3 (01:45→22:39)
[2018-12-03] MEDS: METRONIDAZOLE PMX 500MG/100ML 100 ML IV SCH ×3 (01:45→18:10)
[2018-12-03 07:26] VITALS: BP 102/64
[2018-12-03] MEDS: morphine SULFATE 10 MG/ML, 1ML IVPush PRN (07:29)
[2018-12-03 08:00] LABS: BASOPHILS # (AUTO) 0.02 x10^3/uL (0-0.1); BASOPHILS % (AUTO) 0 % (0-1); EOSINOPHILS # (AUTO) 0.09 x10^3/uL (0-0.4); EOSINOPHILS % (AUTO) 1 % (1-7); LYMPHOCYTES # (AUTO) 1.13 x10^3/uL (1-3.4); LYMPHOCYTES % (AUTO) 17 % (22-44); MD NO; MEAN CORPUSCULAR HEMOGLOBIN 29.4 pg (27.5-34.5); MEAN CORPUSCULAR VOLUME 89.1 fL (81-97); MEAN PLATELET VOLUME 7.4 fL (7.4-10.4); MONOCYTES # (AUTO) 0.91 x10^3/uL (0.2-0.8); MONOCYTES % (AUTO) 13 % (2-9); NEUTROPHILS # (AUTO) 4.67 x10^3/uL (1.8-6.8); NEUTROPHILS % (AUTO) 68 % (42-75); PLATELET COUNT 661 x10^3/uL (130-400); RED BLOOD COUNT 4.62 x10^6/uL (4.38-5.82); RED CELL DISTRIBUTION WIDTH 14.3 % (9.4-14.8)
[2018-12-03 08:10] LABS: ALBUMIN 2.6 g/dL (3.4-5.0); ANION GAP 5 mmol/L (5-15); CHLORIDE 105 mmol/L (98-107)
[2018-12-03 08:14] LABS: ALANINE AMINOTRANSFERASE 35 U/L (12-78); ALKALINE PHOSPHATASE 42 U/L (45-117); BILIRUBIN,TOTAL 0.7 mg/dL (0.2-1.0); CREATININE 0.71 mg/dL (0.7-1.3); TOTAL PROTEIN 6.5 g/dL (6.4-8.2)
[2018-12-03] MEDS: ENOXAPARIN 40 MG/0.4 ML SQ SCH (09:31)
[2018-12-03] MEDS ORDERED: morphine SULFATE 10 MG/ML, 1ML IVPush PRN (14:00)
[2018-12-03 14:30] VITALS: BP 101/65
[2018-12-03] MEDS: CEFTRIAXONE PMX 2GM/50ML 50 ML IV SCH (16:46)
[2018-12-03 20:22] VITALS: BP 98/60
[2018-12-04 01:16] VITALS: BP 101/58
[2018-12-04] MEDS: METRONIDAZOLE PMX 500MG/100ML 100 ML IV SCH ×2 (01:33→11:19)
[2018-12-04 06:43] VITALS: BP 100/60
[2018-12-04] MEDS: D5%-0.45NACL+KCL 20MEQ 1,000 ML IV SCH (09:40)
[2018-12-04] MEDS: ENOXAPARIN 40 MG/0.4 ML SQ SCH (09:40)
[2018-12-04 10:34] LABS: ALBUMIN 2.7 g/dL (3.4-5.0); ANION GAP 6 mmol/L (5-15); CALCIUM 8.1 mg/dL (8.5-10.1); CHLORIDE 103 mmol/L (98-107); CREATININE 0.74 mg/dL (0.7-1.3)
[2018-12-04 13:40] VITALS: BP 94/56
[2018-12-04] MEDS ORDERED: CEFD300C37 PO (15:15)
[2018-12-04] MEDS ORDERED: ACET325T14 PO (15:15)
[2018-12-04] MEDS ORDERED: METR500T PO (15:15)
== END 2018-12-04 17:45 | disposition home or self-care (01) | DRG 871 ==
LOC: MERGE 21:48 → ED 22:27 → EDIP 23:16 → 4NOR 23:53
PROVIDERS: ADMIT Family Medicine; ATTEND Family Medicine
PROC: 0D9670Z Drainage of Stomach with Drainage Device, Via Natural or Artificial Opening (ICD-10-PCS; principal; 2018-11-29)
DX: A41.9 Sepsis, unspecified organism (principal); E43 Unspecified severe protein-calorie malnutrition; E87.1 Hypo-osmolality and hyponatremia; K56.600 Partial intestinal obstruction, unspecified as to cause; D64.9 Anemia, unspecified; E83.39 Other disorders of phosphorus metabolism; E86.0 Dehydration; E87.6 Hypokalemia; Z68.20 Body mass index [BMI] 20.0-20.9, adult; Z90.49 Acquired absence of other specified parts of digestive tract
CPT/HCPCS: 36415; 74018; 74021; 74177; 80048; 80053; 81003; 82040; 83605; 83690; 83735; 84100; 84132; 85025; 87040; 96361; 96374; 96375; 96376; 99285; G0378; J0696; J1650; J1885; J2405; J2543; Q9967; J2270; J2765; J3480; J7030; J7040

== ENCOUNTER 2018-12-25 11:20 | Inpatient (IN) | payer OTHER ==
[~2018-12-25] VITALS: Ht 188 cm; Wt 64.9 kg
[~2018-12-25 11:20] MED LIST changes: +ACET325T14 PO; +CEFD300C37 PO; +METR500T PO
[2018-12-25] MEDS ORDERED: ONDANSETRON 2MG/ML, 2ML ONE ×2 (11:46→16:31)
[2018-12-25] MEDS ORDERED: MORPHINE SULFATE 4 MG/ML, 1ML ONE ×2 (11:46→13:18)
[2018-12-25] MEDS: MORPHINE SULFATE 4 MG/ML, 1ML IVPush PRN ×2 (11:56→13:20)
[2018-12-25] MEDS ORDERED: ONDANSETRON 2MG/ML, 2ML IVPush ONE (12:00)
[2018-12-25] MEDS ORDERED: SODIUM CHLORIDE FLUSH 10ML SYR IVF ONE (12:00)
[2018-12-25] MEDS ORDERED: SODIUM CHLORIDE 0.9% 1,000ML IVBOLUS ONE (12:00)
[2018-12-25 12:07] LABS: BASOPHILS # (AUTO) 0.14 x10^3/uL (0-0.1); BASOPHILS % (AUTO) 1 % (0-1); EOSINOPHILS # (AUTO) 0.04 x10^3/uL (0-0.4); EOSINOPHILS % (AUTO) 0 % (1-7); LYMPHOCYTES % (AUTO) 4 % (22-44); MD NO; MEAN CORPUSCULAR VOLUME 90.7 fL (81-97); MEAN PLATELET VOLUME 8.7 fL (7.4-10.4); MONOCYTES # (AUTO) 0.76 x10^3/uL (0.2-0.8); MONOCYTES % (AUTO) 5 % (2-9); NEUTROPHILS # (AUTO) 13.58 x10^3/uL (1.8-6.8); NEUTROPHILS % (AUTO) 90 % (42-75); PLATELET COUNT 318 x10^3/uL (130-400); RED BLOOD COUNT 5.34 x10^6/uL (4.38-5.82)
[2018-12-25 12:19] LABS: ALANINE AMINOTRANSFERASE 24 U/L (12-78); ANION GAP 7 mmol/L (5-15); CALCIUM 9.2 mg/dL (8.5-10.1); CHLORIDE 105 mmol/L (98-107)
--- NOTE | 2018-12-25 12:19 | NUR ---
PT TO CT IN NAD
[2018-12-25 12:21] LABS: ALKALINE PHOSPHATASE 79 U/L (45-117); BILIRUBIN,TOTAL 0.8 mg/dL (0.2-1.0); TOTAL PROTEIN 8.2 g/dL (6.4-8.2)
[2018-12-25] MEDS ORDERED: OMNIPAQUE 350 MG/ML, 100ML BOTTLE ONE (12:32)
[2018-12-25] MEDS ORDERED: SODIUM CHLORIDE 0.9% 1,000 ML IV ONE (13:00)
--- NOTE | 2018-12-25 13:11 | NUR ---
BEDSIDE REPORT TO RN ILAN, PT CARE TRANSFERRED AT THIS TIME
--- NOTE | 2018-12-25 13:16 | NUR ---
report received from NORMA Whitaker, pt is a&o, resps even and unlabored. gaurd at bedside. pt states abd pain (periumbilical) is coming back, rates at 7/10. bp and spo2 monitors in place. pt to be admitted, updated with POC.
[2018-12-25] MEDS ORDERED: PLEASE ENTER HEIGHT AND WEIGHT MC SCH (13:30)
--- NOTE | 2018-12-25 13:50 | NUR ---
verbal order received from JULIA Vásquez to insert NG tube, pt informed of POC, pt agreeable. pt states pain improved s/p morphine.
--- NOTE | 2018-12-25 14:10 | NUR ---
NG INSERTED BY NORMA QUINTEROS. NG TUBE PLACEMENT CHECKED WITH AUSCULTATION AND ASPIRATION. HOSPITALIST PHI JARA DECLINES TO ORDER ABD XRAY TO CONFIRM PLACEMENT AT THIS TIME. NG ATTACHED TO SUCTION AT INTERMITTENT LOW PER MD DIEZ IINSTRUCTIONS.
--- NOTE | 2018-12-25 14:15 | NUR ---
hospitalist Salty JARA notified pt's wbc is 15 with no source of infection identified at this time. awaiting orders at this time.
--- NOTE | 2018-12-25 14:21 | NUR ---
report called to receiving [employer] Frances. hospitalist at bedside. pt states last PO intake was yesterday at 1530.
[2018-12-25] MEDS ORDERED: SODIUM CHLORIDE 0.9% 1,000 ML IV SCH (14:28)
[2018-12-25] MEDS ORDERED: DOCUSATE 100 MG CAPSULE PO PRN (14:30)
[2018-12-25] MEDS ORDERED: LABETALOL 5MG/ML, 20ML IVPush PRN (14:30)
[2018-12-25] MEDS ORDERED: hydrALAzine 20 MG/ML, 1ML IVPush PRN (14:30)
[2018-12-25] MEDS ORDERED: ONDANSETRON 2MG/ML, 2ML IVPush PRN ×2 (14:30→17:00)
[2018-12-25] MEDS ORDERED: BISACODYL 10 MG SUPP PR PRN (14:30)
[2018-12-25] MEDS ORDERED: POLYETHYLENE GLYCOL 17 GM PACKET PO PRN (14:30)
[2018-12-25] MEDS ORDERED: FENTANYL PF 250 MCG/5ML ONE (15:10)
[2018-12-25 15:14] LABS: INTERNATIONAL NORMALIZED RATIO 1.11 (0.93-1.1); PROTHROMBIN TIME 11.6 Seconds (9.6-11.5)
--- NOTE | 2018-12-25 15:15 | NUR ---
pt placed on oxygen at 2l/min via nc as spo2 is 88-94% on room air, pt is a&o, resps even and unlabored, no s/sx resp distress. pt transported to OR with kathya onofre at transport. pt transported wearing oxygen at 2l/min via NC.
[2018-12-25 15:17] LABS: MICROSCOPIC AUTO
[2018-12-25 15:27] LABS: FREE T4 (FREE THYROXINE) 1.25 ng/dL (0.76-1.46); THYROID STIMULATING HORMONE 3.38 mIU/L (0.358-3.740)
[2018-12-25 15:27] LABS: CULTURE INDICATED? NO
[2018-12-25] MEDS ORDERED: PROPOFOL 10 MG/ML, 20ML ONE (16:31)
[2018-12-25] MEDS ORDERED: SUCCINYLCHOLINE 20 MG/ML, 10ML ONE (16:31)
[2018-12-25] MEDS ORDERED: ROCURONIUM 10MG/ML,5ML ONE (16:31)
[2018-12-25] MEDS ORDERED: DEXAMETHASONE 4 MG/ML, 1ML ONE (16:31)
[2018-12-25] MEDS ORDERED: MIDAZOLAM 1 MG/ML, 2ML ONE (16:32)
[2018-12-25] MEDS ORDERED: PROMETHAZINE 25 MG/ML, 1ML IV PRN (17:00)
[2018-12-25] MEDS ORDERED: MEPERIDINE/PF 25MG/0.5ML IVPush PRN (17:00)
[2018-12-25] MEDS ORDERED: LABETALOL 5MG/ML, 20ML IV PRN (17:00)
[2018-12-25] MEDS ORDERED: hydrALAzine 20 MG/ML, 1ML IV PRN (17:00)
[2018-12-25] MEDS ORDERED: OXYcodone 5 MG/5 ML ORAL.SOL UDC PO PRN (17:00)
[2018-12-25] MEDS ORDERED: METOCLOPRAMIDE 5 MG/ML, 2ML IV PRN (17:00)
[2018-12-25] MEDS ORDERED: ALBUTEROL SULFATE 2.5 MG/3 ML NPPB PRN (17:00)
[2018-12-25] MEDS ORDERED: KETOROLAC 30 MG/1 ML IV PRN (17:00)
[2018-12-25] MEDS ORDERED: KETOROLAC 30 MG/1 ML ONE (17:23)
[2018-12-25] MEDS ORDERED: HYDROmorphone 2 MG/ML, 1ML ONE (17:23)
[2018-12-25] MEDS ORDERED: FENTANYL PF 100 MCG/2ML ONE (17:23)
[2018-12-25] MEDS: FENTANYL PF 100 MCG/2ML IV PRN ×2 (17:25→17:30)
[2018-12-25] MEDS: HYDROmorphone 1 MG/ML, 1ML INJ IV PRN ×4 (17:39→17:55)
[2018-12-25] MEDS ORDERED: MEPERIDINE/PF 25MG/ML,1ML ONE (18:11)
[2018-12-25] MEDS ORDERED: LORazepam 2 MG/ML, 1ML ONE (18:28)
[2018-12-25] MEDS ORDERED: LORazepam 2 MG/ML, 1ML IVPush ONE (18:30)
[2018-12-25 19:30] VITALS: BP 101/64
[2018-12-25] MEDS: NICOTINE 14MG/24 HR PATCH.TD24 TD SCH (21:00)
[2018-12-25] MEDS: morphine SULFATE 10 MG/ML, 1ML IV PRN ×3 (21:18→23:52)
[2018-12-25] MEDS: FAMOTIDINE 20 MG/2 ML IVPush SCH (21:19)
[2018-12-25] MEDS ORDERED: ONDANSETRON 2MG/ML, 2ML IV PRN (21:30)
[2018-12-25] MEDS ORDERED: HYDROmorphone 2 MG/ML, 1ML IVPush PRN (21:30)
[2018-12-25] MEDS: POTASSIUM CHLORIDE 20 MEQ in D5%-0.45% NACL 1,000 ML IV SCH (22:56)
[2018-12-25] MEDS: LORazepam 2 MG/ML, 1ML IV PRN (23:52)
[2018-12-26 00:03] VITALS: BP 100/64
[2018-12-26] MEDS: morphine SULFATE 10 MG/ML, 1ML IV PRN ×11 (01:55→22:45)
[2018-12-26 04:02] VITALS: BP 102/66
[2018-12-26] MEDS: CEFOTETAN PMX 1GM/50ML 50 ML IVPB SCH ×2 (04:08→16:22)
[2018-12-26 05:07] LABS: BASOPHILS # (AUTO) 0.03 x10^3/uL (0-0.1); BASOPHILS % (AUTO) 0 % (0-1); EOSINOPHILS # (AUTO) 0.15 x10^3/uL (0-0.4); EOSINOPHILS % (AUTO) 2 % (1-7); LYMPHOCYTES % (AUTO) 16 % (22-44); MD NO; MEAN CORPUSCULAR HEMOGLOBIN 30.2 pg (27.5-34.5); MEAN CORPUSCULAR HGB CONC 32.8 g/dL (33.2-36.2); MEAN CORPUSCULAR VOLUME 92.1 fL (81-97); MEAN PLATELET VOLUME 8.3 fL (7.4-10.4); MONOCYTES % (AUTO) 9 % (2-9); NEUTROPHILS # (AUTO) 4.53 x10^3/uL (1.8-6.8); NEUTROPHILS % (AUTO) 72 % (42-75); PLATELET COUNT 251 x10^3/uL (130-400); RED BLOOD COUNT 4.24 x10^6/uL (4.38-5.82); RED CELL DISTRIBUTION WIDTH 14.4 % (9.4-14.8)
[2018-12-26 05:20] LABS: ALBUMIN 2.9 g/dL (3.4-5.0); ANION GAP 5 mmol/L (5-15); CALCIUM 7.9 mg/dL (8.5-10.1); CHLORIDE 109 mmol/L (98-107)
[2018-12-26 05:25] LABS: ALANINE AMINOTRANSFERASE 16 U/L (12-78); ALKALINE PHOSPHATASE 54 U/L (45-117); BILIRUBIN,TOTAL 0.8 mg/dL (0.2-1.0); TOTAL PROTEIN 5.9 g/dL (6.4-8.2)
[2018-12-26] MEDS: ENOXAPARIN 40 MG/0.4 ML SQ SCH (05:43)
[2018-12-26] MEDS: POTASSIUM CHLORIDE 20 MEQ in D5%-0.45% NACL 1,000 ML IV SCH ×2 (07:37→16:29)
[2018-12-26 07:50] VITALS: BP 113/72
[2018-12-26] MEDS: FAMOTIDINE 20 MG/2 ML IVPush SCH ×2 (08:11→20:38)
[2018-12-26] MEDS: LORazepam 2 MG/ML, 1ML IV PRN (09:55)
[2018-12-26 12:15] VITALS: BP 119/77
[2018-12-26] MEDS ORDERED: ACETAMINOPHEN 650 MG SUPP PR PRN (13:00)
[2018-12-26 19:58] VITALS: BP 111/70
[2018-12-26] MEDS: NICOTINE 14MG/24 HR PATCH.TD24 TD SCH (20:34)
[2018-12-27] MEDS: morphine SULFATE 10 MG/ML, 1ML IV PRN ×6 (00:16→10:24)
[2018-12-27 00:41] VITALS: BP 119/74
[2018-12-27] MEDS: POTASSIUM CHLORIDE 20 MEQ in D5%-0.45% NACL 1,000 ML IV SCH ×3 (00:46→17:30)
[2018-12-27 05:40] LABS: BASOPHILS # (AUTO) 0.02 x10^3/uL (0-0.1); BASOPHILS % (AUTO) 0 % (0-1); EOSINOPHILS # (AUTO) 0.06 x10^3/uL (0-0.4); EOSINOPHILS % (AUTO) 1 % (1-7); LYMPHOCYTES # (AUTO) 1.08 x10^3/uL (1-3.4); LYMPHOCYTES % (AUTO) 14 % (22-44); MD NO; MEAN CORPUSCULAR HEMOGLOBIN 30.1 pg (27.5-34.5); MEAN CORPUSCULAR HGB CONC 32.9 g/dL (33.2-36.2); MEAN CORPUSCULAR VOLUME 91.5 fL (81-97); MEAN PLATELET VOLUME 8.7 fL (7.4-10.4); MONOCYTES # (AUTO) 1.04 x10^3/uL (0.2-0.8); MONOCYTES % (AUTO) 13 % (2-9); NEUTROPHILS # (AUTO) 5.74 x10^3/uL (1.8-6.8); NEUTROPHILS % (AUTO) 72 % (42-75); PLATELET COUNT 221 x10^3/uL (130-400); RED BLOOD COUNT 4.02 x10^6/uL (4.38-5.82)
[2018-12-27 05:50] LABS: ANION GAP 5 mmol/L (5-15); CALCIUM 7.9 mg/dL (8.5-10.1); CHLORIDE 102 mmol/L (98-107); CREATININE 0.76 mg/dL (0.7-1.3)
[2018-12-27] MEDS: ENOXAPARIN 40 MG/0.4 ML SQ SCH (06:17)
[2018-12-27] MEDS: FAMOTIDINE 20 MG/2 ML IVPush SCH ×2 (07:54→20:45)
[2018-12-27 08:02] VITALS: BP 108/64
[2018-12-27] MEDS: morphine SULFATE 10 MG/ML, 1ML IVPush PRN ×5 (12:13→23:47)
[2018-12-27 12:20] VITALS: BP 103/54
[2018-12-27] MEDS ORDERED: MORPHINE SULFATE 4 MG/ML, 1ML ONE (14:31)
[2018-12-27 20:14] VITALS: BP 105/67
[2018-12-27] MEDS: NICOTINE 14MG/24 HR PATCH.TD24 TD SCH (21:00)
[2018-12-28] MEDS: LORazepam 2 MG/ML, 1ML IV PRN (01:22)
[2018-12-28] MEDS: POTASSIUM CHLORIDE 20 MEQ in D5%-0.45% NACL 1,000 ML IV SCH ×2 (01:22→09:37)
[2018-12-28 01:45] VITALS: BP 106/68
[2018-12-28 04:47] LABS: BASOPHILS # (AUTO) 0.01 x10^3/uL (0-0.1); BASOPHILS % (AUTO) 0 % (0-1); EOSINOPHILS # (AUTO) 0.06 x10^3/uL (0-0.4); EOSINOPHILS % (AUTO) 1 % (1-7); LYMPHOCYTES % (AUTO) 15 % (22-44); MD NO; MEAN CORPUSCULAR HEMOGLOBIN 29.3 pg (27.5-34.5); MEAN CORPUSCULAR VOLUME 91.4 fL (81-97); MEAN PLATELET VOLUME 8.1 fL (7.4-10.4); MONOCYTES # (AUTO) 0.92 x10^3/uL (0.2-0.8); MONOCYTES % (AUTO) 13 % (2-9); NEUTROPHILS # (AUTO) 5.15 x10^3/uL (1.8-6.8); NEUTROPHILS % (AUTO) 71 % (42-75); PLATELET COUNT 204 x10^3/uL (130-400); RED BLOOD COUNT 3.93 x10^6/uL (4.38-5.82); RED CELL DISTRIBUTION WIDTH 13.8 % (9.4-14.8)
[2018-12-28 04:56] LABS: ALANINE AMINOTRANSFERASE 15 U/L (12-78); ALBUMIN 2.6 g/dL (3.4-5.0); ANION GAP 5 mmol/L (5-15); CALCIUM 8.2 mg/dL (8.5-10.1); CHLORIDE 103 mmol/L (98-107); CREATININE 0.94 mg/dL (0.7-1.3)
[2018-12-28 04:59] LABS: ALKALINE PHOSPHATASE 52 U/L (45-117); BILIRUBIN,TOTAL 0.9 mg/dL (0.2-1.0); TOTAL PROTEIN 6.2 g/dL (6.4-8.2)
[2018-12-28] MEDS ORDERED: BISACODYL 5 MG EC TABLET PO PRN (05:30)
[2018-12-28] MEDS ORDERED: HYDROcodone/APAP 5/325 TABLET ONE (05:32)
[2018-12-28] MEDS: HYDROcodone/APAP 5/325 TABLET PO PRN ×5 (05:34→21:46)
[2018-12-28] MEDS: ENOXAPARIN 40 MG/0.4 ML SQ SCH (05:37)
[2018-12-28 07:03] VITALS: BP 106/69
[2018-12-28] MEDS ORDERED: morphine SULFATE 10 MG/ML, 1ML IVPush PRN (08:00)
[2018-12-28] MEDS: FAMOTIDINE 20 MG/2 ML IVPush SCH ×2 (08:46→20:35)
[2018-12-28 13:13] VITALS: BP 102/63
[2018-12-28] MEDS: NICOTINE 14MG/24 HR PATCH.TD24 TD SCH (21:00)
[2018-12-28] MEDS: LORazepam 1MG TABLET PO PRN (21:47)
[2018-12-28 21:56] VITALS: BP 116/78
[2018-12-29] MEDS: HYDROcodone/APAP 5/325 TABLET PO PRN ×5 (02:06→20:08)
[2018-12-29 02:08] VITALS: BP 107/64
[2018-12-29 05:36] LABS: BASOPHILS # (AUTO) 0.02 x10^3/uL (0-0.1); BASOPHILS % (AUTO) 0 % (0-1); EOSINOPHILS # (AUTO) 0.09 x10^3/uL (0-0.4); EOSINOPHILS % (AUTO) 2 % (1-7); LYMPHOCYTES # (AUTO) 1.12 x10^3/uL (1-3.4); LYMPHOCYTES % (AUTO) 20 % (22-44); MD NO; MEAN CORPUSCULAR HEMOGLOBIN 30.1 pg (27.5-34.5); MEAN CORPUSCULAR HGB CONC 33.2 g/dL (33.2-36.2); MEAN CORPUSCULAR VOLUME 90.8 fL (81-97); MEAN PLATELET VOLUME 8.3 fL (7.4-10.4); MONOCYTES # (AUTO) 0.91 x10^3/uL (0.2-0.8); MONOCYTES % (AUTO) 16 % (2-9); NEUTROPHILS # (AUTO) 3.59 x10^3/uL (1.8-6.8); NEUTROPHILS % (AUTO) 63 % (42-75); PLATELET COUNT 241 x10^3/uL (130-400); RED BLOOD COUNT 3.83 x10^6/uL (4.38-5.82); RED CELL DISTRIBUTION WIDTH 13.6 % (9.4-14.8)
[2018-12-29 07:47] VITALS: BP 92/56
[2018-12-29] MEDS: ENOXAPARIN 40 MG/0.4 ML SQ SCH (09:11)
[2018-12-29] MEDS: FAMOTIDINE 20 MG/2 ML IVPush SCH (09:11)
[2018-12-29] MEDS: LORazepam 1MG TABLET PO PRN (13:28)
[2018-12-29 14:00] VITALS: BP 89/59
[2018-12-29] MEDS: FAMOTIDINE 20 MG TABLET PO SCH (20:07)
[2018-12-29] MEDS: NICOTINE 14MG/24 HR PATCH.TD24 TD SCH (20:08)
[2018-12-29 20:26] VITALS: BP 88/54
[2018-12-30 01:05] VITALS: BP 103/65
[2018-12-30] MEDS: HYDROcodone/APAP 5/325 TABLET PO PRN ×2 (02:07→06:01)
[2018-12-30 04:52] LABS: BASOPHILS # (AUTO) 0.02 x10^3/uL (0-0.1); BASOPHILS % (AUTO) 0 % (0-1); EOSINOPHILS # (AUTO) 0.15 x10^3/uL (0-0.4); EOSINOPHILS % (AUTO) 3 % (1-7); LYMPHOCYTES # (AUTO) 1.22 x10^3/uL (1-3.4); LYMPHOCYTES % (AUTO) 22 % (22-44); MD NO; MEAN CORPUSCULAR HEMOGLOBIN 29.8 pg (27.5-34.5); MEAN CORPUSCULAR HGB CONC 32.9 g/dL (33.2-36.2); MEAN CORPUSCULAR VOLUME 90.6 fL (81-97); MONOCYTES % (AUTO) 16 % (2-9); NEUTROPHILS # (AUTO) 3.23 x10^3/uL (1.8-6.8); NEUTROPHILS % (AUTO) 59 % (42-75); PLATELET COUNT 272 x10^3/uL (130-400); RED BLOOD COUNT 3.97 x10^6/uL (4.38-5.82); RED CELL DISTRIBUTION WIDTH 13.8 % (9.4-14.8)
[2018-12-30 07:24] VITALS: BP 105/71
[2018-12-30] MEDS ORDERED: ACET650S12 PR (08:49)
[2018-12-30] MEDS: ENOXAPARIN 40 MG/0.4 ML SQ SCH (09:01)
[2018-12-30] MEDS: FAMOTIDINE 20 MG TABLET PO SCH (09:01)
== END 2018-12-30 12:30 | disposition home or self-care (01) | DRG 335 ==
LOC: ED 12:27 → EDIP 14:28 → 4NOR 19:40
PROVIDERS: ADMIT Hospitalist; ATTEND Hospitalist
PROC: 0W9G0ZZ Drainage of Peritoneal Cavity, Open Approach (ICD-10-PCS; 2018-12-25)
PROC: 0D9670Z Drainage of Stomach with Drainage Device, Via Natural or Artificial Opening (ICD-10-PCS; 2018-12-25)
PROC: 0DN80ZZ Release Small Intestine, Open Approach (ICD-10-PCS; principal; 2018-12-25 16:00)
DX: K56.601 Complete intestinal obstruction, unspecified as to cause (principal); E43 Unspecified severe protein-calorie malnutrition; K65.9 Peritonitis, unspecified; Z68.1 Body mass index [BMI] 19.9 or less, adult; K56.7 Ileus, unspecified; D72.828 Other elevated white blood cell count; F15.90 Other stimulant use, unspecified, uncomplicated; F32.9 Major depressive disorder, single episode, unspecified; F17.210 Nicotine dependence, cigarettes, uncomplicated; J44.9 Chronic obstructive pulmonary disease, unspecified; K66.0 Peritoneal adhesions (postprocedural) (postinfection); Z66 Do not resuscitate; Z90.49 Acquired absence of other specified parts of digestive tract
CPT/HCPCS: 36415; 96361; 99291; J3490; 71045; 74177; 80048; 80053; 81001; 83605; 83690; 83735; 84100; 84439; 84443; 85025; 85610; 87040; 96374; 96375; G0378; J1100; J1170; J1650; J1885; J2175; J2250; J2405; J2704; J3010; J3480; Q9967; C1765; J0330; J2060; J2270; J7030

== ENCOUNTER 2019-01-16 11:12 | Emergency (ER) | payer OTHER ==
[~2019-01-16] VITALS: Ht 188 cm; Wt 59.5 kg
[~2019-01-16 11:12] MED LIST changes: +ACET650S12 PR; +CIPR500T87 PO; +DOCU-131 PO; +OXYC1TAB7 PO
--- NOTE | 2019-01-16 11:16 | NUR ---
PATIENT BIB [address] [facility] FOR LOWER ABD PAIN. PATIENT DC'D LAST WED, HAD SURGERY FOR RUPTURED ARBEN, BOWEL OBSTRUCTION, AND ABSCESS IN ABD PER OFFICER/PATIENT. NADN. AWAITING MD ORDERS, CALL LIGHT WITHIN REACH. OFFICER AT BEDSIDE.
[2019-01-16] MEDS ORDERED: ONDANSETRON 2MG/ML, 2ML IVPush ONE (11:30)
[2019-01-16] MEDS ORDERED: MORPHINE SULFATE 4 MG/ML, 1ML IVPush PRN (11:30)
[2019-01-16] MEDS ORDERED: SODIUM CHLORIDE FLUSH 10ML SYR IVF ONE (11:30)
[2019-01-16] MEDS ORDERED: TRAM100T33 PO (11:33)
[2019-01-16 11:46] LABS: BASOPHILS # (AUTO) 0.03 x10^3/uL (0-0.1); BASOPHILS % (AUTO) 1 % (0-1); EOSINOPHILS # (AUTO) 0.11 x10^3/uL (0-0.4); EOSINOPHILS % (AUTO) 2 % (1-7); LYMPHOCYTES # (AUTO) 1.26 x10^3/uL (1-3.4); LYMPHOCYTES % (AUTO) 22 % (22-44); MD NO; MEAN CORPUSCULAR HEMOGLOBIN 29.1 pg (27.5-34.5); MEAN CORPUSCULAR HGB CONC 32.2 g/dL (33.2-36.2); MEAN CORPUSCULAR VOLUME 90.4 fL (81-97); MONOCYTES # (AUTO) 0.42 x10^3/uL (0.2-0.8); MONOCYTES % (AUTO) 7 % (2-9); NEUTROPHILS # (AUTO) 3.88 x10^3/uL (1.8-6.8); NEUTROPHILS % (AUTO) 68 % (42-75); PLATELET COUNT 431 x10^3/uL (130-400); RED BLOOD COUNT 4.72 x10^6/uL (4.38-5.82)
[2019-01-16] MEDS ORDERED: MORPHINE SULFATE 4 MG/ML, 1ML ONE (11:48)
[2019-01-16] MEDS ORDERED: ONDANSETRON 2MG/ML, 2ML ONE (11:48)
[2019-01-16 11:54] LABS: ALANINE AMINOTRANSFERASE 153 U/L (12-78); ANION GAP 3 mmol/L (5-15); CALCIUM 8.6 mg/dL (8.5-10.1); CHLORIDE 107 mmol/L (98-107); CREATININE 0.95 mg/dL (0.7-1.3)
[2019-01-16 11:57] LABS: ALKALINE PHOSPHATASE 60 U/L (45-117); BILIRUBIN,TOTAL 0.3 mg/dL (0.2-1.0); TOTAL PROTEIN 7.8 g/dL (6.4-8.2)
[2019-01-16 12:11] LABS: CULTURE INDICATED? YES; MICROSCOPIC INDICATED
[2019-01-16 12:14] VITALS: BP 129/63
--- NOTE | 2019-01-16 12:15 | NUR ---
VS UPDATED IN CHART, AWAITING RESULTS. PATIENT WATCHING TV WITH OFFICER AT BEDSIDE. LILIANA.
[2019-01-16] MEDS ORDERED: OMNIPAQUE 350 MG/ML, 100ML BOTTLE ONE (12:48)
--- NOTE | 2019-01-16 13:10 | NUR ---
LUNCH BREAK NOTE: DR. BROOKS AT BEDSIDE FOR RECHECK.
--- NOTE | 2019-01-16 13:33 | NUR ---
Patient/Caregiver given discharge instructions and they have confirmed that they understand the instructions. Patient ambulatory with steady gait. Addendum: 01/16/19 at 1334 by HALINA Patient with officer to ambulance bay.
== END 2019-01-16 13:43 | disposition home or self-care (01) ==
LOC: ED 12:50
DX: R10.33 Periumbilical pain (principal); Z90.89 Acquired absence of other organs
CPT/HCPCS: 36415; 74177; 80053; 81001; 83605; 83690; 85025; 87086; 96374; 96375; 99284; J2270; J2405; Q9967

== ENCOUNTER 2019-01-19 11:16 | Emergency (ER) | payer OTHER ==
[~2019-01-19] VITALS: Ht 188 cm; Wt 62.0 kg
[~2019-01-19 11:16] MED LIST changes: +TRAM100T33 PO
--- NOTE | 2019-01-19 11:24 | NUR ---
PATIENT ARRIVES TO ER WITH [facility] FROM [facility] WITH COMPLAINTS OF ABDOMINAL PAIN/NAUSEA/VOMITING. HE HAS HAD 9 BM'S IN LAST 24 HOURS. HE HAS A HISTORY OF A BOWEL OBSTRUTION December OF THIS YEAR AND November HAD APPENDICITIS ALL HERE. SINCE THAT DATE HE HAS CONTINUED TO HAVE ABDOMINAL PAIN. IN BED, RAILS UP, ON MONITOR.
--- NOTE | 2019-01-19 11:35 | NUR ---
PATIENT LEFT FOR XRAY
--- NOTE | 2019-01-19 11:41 | NUR ---
patient back from xray. awaiting results and md to u/s.
[2019-01-19 11:53] LABS: BASOPHILS # (AUTO) 0.02 x10^3/uL (0-0.1); BASOPHILS % (AUTO) 0 % (0-1); EOSINOPHILS # (AUTO) 0.09 x10^3/uL (0-0.4); EOSINOPHILS % (AUTO) 1 % (1-7); LYMPHOCYTES # (AUTO) 1.43 x10^3/uL (1-3.4); LYMPHOCYTES % (AUTO) 17 % (22-44); MD NO; MEAN CORPUSCULAR HEMOGLOBIN 29.2 pg (27.5-34.5); MEAN CORPUSCULAR HGB CONC 32.6 g/dL (33.2-36.2); MEAN CORPUSCULAR VOLUME 89.5 fL (81-97); MEAN PLATELET VOLUME 8.1 fL (7.4-10.4); MONOCYTES # (AUTO) 0.57 x10^3/uL (0.2-0.8); MONOCYTES % (AUTO) 7 % (2-9); NEUTROPHILS # (AUTO) 6.21 x10^3/uL (1.8-6.8); NEUTROPHILS % (AUTO) 75 % (42-75); PLATELET COUNT 331 x10^3/uL (130-400); RED BLOOD COUNT 4.92 x10^6/uL (4.38-5.82); RED CELL DISTRIBUTION WIDTH 15.5 % (9.4-14.8)
[2019-01-19 12:11] LABS: ALBUMIN 4.4 g/dL (3.4-5.0); ANION GAP 9 mmol/L (5-15); CHLORIDE 105 mmol/L (98-107)
[2019-01-19 12:13] LABS: CREATININE 0.97 mg/dL (0.7-1.3)
[2019-01-19 12:28] VITALS: BP 147/91
--- NOTE | 2019-01-19 12:29 | NUR ---
DC INSTRUCTIONS REVIEWED WITH PATIENT, SHOWS UNDERSTANDING. BOTTLE GIVEN TO OFFICER [employer]
[2019-01-19] MEDS ORDERED: MAGNESIUM CITRATE 300ML ORAL SOL PO PRN (12:30)
[2019-01-19] MEDS ORDERED: MAGNESIUM CITRATE 300ML ORAL SOL ONE (12:32)
[2019-01-19 13:01] LABS: MICROSCOPIC INDICATED
[2019-01-19 13:08] LABS: CULTURE INDICATED? YES
== END 2019-01-19 12:41 | disposition home or self-care (01) ==
LOC: ED 12:12
DX: K59.00 Constipation, unspecified (principal)
CPT/HCPCS: 36415; 74021; 80048; 81001; 82040; 85025; 87086; 99284

== ENCOUNTER 2019-01-26 21:33 | Emergency (ER) | payer OTHER ==
[~2019-01-26] VITALS: Ht 188 cm; Wt 59.5 kg
--- NOTE | 2019-01-26 21:45 | NUR ---
PT BROUGHT IN FROM [facility]. PT STATES, "AFTER SNEEZING AROUND 12PM TODAY, I FELT A POP UNDER THE SKIN AT THE SITE OF MY ABDOMINAL INCISION. NOW THE SITE IS SWOLLEN AND RED." PT HAS HX OF APPY 11/22/18, FOLLOWED BY AN INFECTION THEN BOWEL OBSTRUCTION 12/25/18, THEN ABD ABSCESS 01/03-01/14/19. PT HAS MIDLINE ABD INCISION WITH SWELLING, REDNESS AND TENDERNESS NOTED IN THE LOWER SECTION. PT ARRIVES TO ED A&OX4, C/O PAIN 04/20. VSS. ACCOMPANIED BY [facility] OFFICERS.
[2019-01-26] MEDS ORDERED: SODIUM CHLORIDE FLUSH 10ML SYR IVF ONE (22:00)
[2019-01-26 22:18] LABS: BASOPHILS # (AUTO) 0.03 x10^3/uL (0-0.1); BASOPHILS % (AUTO) 0 % (0-1); EOSINOPHILS % (AUTO) 3 % (1-7); LYMPHOCYTES # (AUTO) 2.23 x10^3/uL (1-3.4); LYMPHOCYTES % (AUTO) 27 % (22-44); MD NO; MEAN CORPUSCULAR HEMOGLOBIN 29.7 pg (27.5-34.5); MEAN CORPUSCULAR HGB CONC 32.7 g/dL (33.2-36.2); MEAN CORPUSCULAR VOLUME 90.7 fL (81-97); MEAN PLATELET VOLUME 8.6 fL (7.4-10.4); MONOCYTES % (AUTO) 11 % (2-9); NEUTROPHILS # (AUTO) 4.89 x10^3/uL (1.8-6.8); NEUTROPHILS % (AUTO) 59 % (42-75); PLATELET COUNT 247 x10^3/uL (130-400); RED BLOOD COUNT 4.72 x10^6/uL (4.38-5.82); RED CELL DISTRIBUTION WIDTH 15.9 % (9.4-14.8)
--- NOTE | 2019-01-26 22:22 | NUR ---
CT PENDING LAB/CREATINE
[2019-01-26 22:28] LABS: ALANINE AMINOTRANSFERASE 42 U/L (12-78); ALBUMIN 4.2 g/dL (3.4-5.0); CALCIUM 8.5 mg/dL (8.5-10.1); CHLORIDE 105 mmol/L (98-107); CREATININE 0.83 mg/dL (0.7-1.3)
[2019-01-26 22:29] LABS: MICROSCOPIC AUTO
[2019-01-26 22:30] LABS: CULTURE INDICATED? NO
[2019-01-26 22:31] LABS: ALKALINE PHOSPHATASE 58 U/L (45-117); BILIRUBIN,TOTAL 0.3 mg/dL (0.2-1.0); TOTAL PROTEIN 7.4 g/dL (6.4-8.2)
[2019-01-26 23:02] LABS: ANION GAP 7 mmol/L (5-15)
--- NOTE | 2019-01-26 23:25 | NUR ---
PT TO CT VIA [facility].
[2019-01-27] MEDS ORDERED: MORPHINE SULFATE 4 MG/ML, 1ML IVPush PRN
[2019-01-27] MEDS ORDERED: ONDANSETRON 2MG/ML, 2ML IVPush ONE
--- NOTE | 2019-01-27 00:03 | NUR ---
PT REQUESTED PAIN MEDS, ERP NOTIFIED. ERP WAS IN FOR RE-CHECK.
[2019-01-27] MEDS ORDERED: MORPHINE SULFATE 4 MG/ML, 1ML ONE (00:05)
[2019-01-27] MEDS ORDERED: ONDANSETRON 2MG/ML, 2ML ONE (00:05)
[2019-01-27 00:30] VITALS: BP 107/64
== END 2019-01-27 00:32 | disposition home or self-care (01) ==
LOC: ED 21:57
DX: R10.33 Periumbilical pain (principal)
CPT/HCPCS: 36415; 74177; 80053; 81001; 85025; 96374; 96375; 99284; J2270; J2405